=== PATIENT | male | born 1940 | race Caucasian/White ===

== ENCOUNTER → 2018-08-24 | Outpatient (CLI) | payer OTHER | LOC: MRI 10:28 | DX: I67.82 Cerebral ischemia (principal) ==

== ENCOUNTER → 2018-09-05 | Outpatient (CLI) | payer OTHER ==
--- NOTE | 2018-09-06 14:10 | EEG ---
[facility] [employer] [address] ELECTROENCEPHALOGRAM Name: Duane VALDES Room #: REG [facility] MAnnika.#: [id number] Admission: 09/05/18 Attend Phys: Meagan Gr MD Discharge: Date of : 44 Report #: [id number] THIS REPORT FOR: //name// CC: Meagan Moy DATE OF SERVICE: 09/05/2018 This patient is being evaluated for diminished memory. EEG was done by placing the electrode by standard 10-20 system of electrode placement. Both referential and sequential montages were used for recording. Background activity in this patient's EEG is about 11 Hz and 40 microvolt. The patient becomes drowsy and that is associated with bilateral slowing and vertex sharp waves on both sides. Photic stimulation was unremarkable. Throughout the record, no active epileptiform activity was noticed. IMPRESSION: This patient's electroencephalogram is within normal limits. Thank you very much for this referral. <ELECTRONICALLY SIGNED> By: Dave Desir MD 09/06/18 1410 1208 1214 Dave Desir MD /nt
== END ==
LOC: NEURO 09:13
DX: R41.3 Other amnesia (principal)

== ENCOUNTER 2019-06-14 17:31 | Emergency (ER) | payer OTHER ==
[~2019-06-14] VITALS: Ht 172.7 cm; Wt 94.3 kg
[2019-06-14] MEDS ORDERED: COZAAR 50 MG TA50 M1 PO (18:00)
[2019-06-14] MEDS ORDERED: CYMBALTA60 MG PO (18:00)
[2019-06-14 18:17] LABS: ABSOLUTE NEUTROPHILS 9.2 thou/uL (1.4-8.2); BASOPHILS 0.9 % (0.0-2.0); EOSINOPHILS 3.6 % (0.0-3.0); HEMATOCRIT 43.3 % (42.0-52.0); HEMOGLOBIN 14.3 gm/dL (14.0-18.0); LYMPHOCYTES 18.7 % (24.0-44.0); MCHC 33.1 g/dL (28.0-37.0); MCV 90.8 fL (80.0-100.0); MONOCYTES 7.5 % (1.0-8.0); PLATELET COUNT 218 thou/uL (150-400); POLYS 69.3 % (36.0-66.0); RBC 4.77 mil/uL (4.50-6.00); RDW 14.5 % (10.5-14.5); WBC 13.3 thou/uL (4.0-11.0)
[2019-06-14 18:29] LABS: CREATININE 1.2 mg/dL (0.7-1.3); POTASSIUM 3.9 mmol/L (3.5-5.1)
[2019-06-14 18:34] LABS: ALBUMIN 3.3 g/dL (3.4-5.0); TOTAL BILIRUBIN 0.3 mg/dL (<0.1-1.0); TOTAL PROTEIN 7.9 g/dL (6.4-8.2)
[2019-06-14 19:51] VITALS: BP 127/71
--- NOTE | 2019-06-15 11:01 | EKG ---
[place] [address] [facility] [address] [place] [address] ELECTROCARDIOGRAM REPORT Name: Duane VALDES Room #: DEP SAVANNAH Porras#: [id number] Admission: 06/14/19 Attend Phys: Discharge: 06/14/19 Date of : 44 Report #: [id number] THIS REPORT FOR: //name// [facility] ED Test Date: 2019-06-14 Test Time: 17:55:14 Pat Name: Duane VALDES Department: Room: Gender: [employer] Supervisor: KM : 1940 Requested By: Renard Florence Order Number: [id number] MD: Jase Cordova Measurements Intervals [place] Rate: 79 P: 48 MT: 168 QRS: -73 QRSD: 143 T: 52 QT: 404 QTc: 464 Interpretive Statements Sinus rhythm Probable left atrial enlargement RBBB and LAFB No previous ECG available for comparison Electronically Signed On 06-15-2019 11:01:24 [employer] by Jase Cordova [email or web address] <ELECTRONICALLY SIGNED> By: Jase Cordova MD 06/15/19 1101 1755 1755 Jase Cordova MD /EPI
== END 2019-06-14 19:52 | disposition home or self-care (01) ==
LOC: ER 17:31
PROVIDERS: Emergency Medicine
DX: R10.32 Left lower quadrant pain (principal); R10.84 Generalized abdominal pain; I10 Essential (primary) hypertension; Z98.890 Other specified postprocedural states; Z87.891 Personal history of nicotine dependence